=== PATIENT | male | born 1980 | race Caucasian/White ===

== ENCOUNTER 2019-10-19 10:29 | Inpatient (IN) | payer MEDICARE, MEDICAID ==
[~2019-10-19] VITALS: Ht 172.7 cm; Wt 71.4 kg
[~2019-10-19 10:29] MED LIST: CINA90TA MT; FERR210T MT; HYDR200T35 MT; HYDR200T35 PO; LORA2TAB95 PO; MULT-1146 PO; POTA-79 MT; PRED10TA MT; THIA100T13 PO
[2019-10-19] MEDS ORDERED: ONDANSETRON 4MG ODT PO STA (13:46)
[2019-10-19 14:43] LABS: BASOPHILS % 0.7 % (0.0-2.0); HEMATOCRIT. 42.4 % (42.0-52.0); HEMOGLOBIN. 14.8 g/dL (14.0-18.0); LYMPHOCYTES % 9.6 % (20.0-50.0); MEAN CORPUSCULAR HEMOGLOBIN 30.9 pg (28.0-32.0); MEAN CORPUSCULAR VOLUME 88.5 fL (80.0-94.0); MEAN PLATELET VOLUME 7.7 fl (7.4-10.4); MONOCYTES % 8.3 % (2.0-8.0); NEUTROPHILS % 81.4 % (40.0-76.0); PLATELET 439 x1000/uL (130-400); RED BLOOD CELL COUNT 4.79 mill/uL (4.7-6.1); RED CELL DISTRIBUTION WIDTH 15.2 % (11.6-14.6)
[2019-10-19 14:46] LABS: CHLORIDE 87 mEq/L (98-107); INR 1.2
[2019-10-19] MEDS ORDERED: SODIUM CHLORIDE 0.9% 1,000 ML IV ONE (16:31)
[2019-10-19 19:00] LABS: HEPATITIS B SURFACE ANTIGEN NEGATIVE
[2019-10-19 19:30] LABS: HEPATITIS A AB IGM NEGATIVE (NEGATIVE)
[2019-10-19] MEDS ORDERED: SODIUM CHLORIDE 0.9% 500ML IV NR (22:15)
[2019-10-20] VITALS: BP 144/90
[2019-10-20] MEDS ORDERED: CLONIDINE 0.1MG TABLET PO PRN (00:30)
[2019-10-20] MEDS ORDERED: ONDANSETRON HCL 4MG/2ML INJ IV PRN (00:30)
[2019-10-20] MEDS ORDERED: FOLIC ACID 1 MG, THIAMINE HCL 100 MG, MVI, ADULT NO.1 10 ML in DEXTROSE 5% WATER 1,000 ML IV NR ×4 (02:00)
[2019-10-20 08:00] VITALS: BP 130/84
[2019-10-20] MEDS ORDERED: LORAZEPAM 2MG/ML CPJ IV PRN (08:15)
[2019-10-20] MEDS: FAMOTIDINE 20MG/2ML VIAL IV SCH (09:27)
[2019-10-20] MEDS: DIPHENHYDRAMINE 50MG/ML VIAL IV PRN ×2 (10:25→18:13)
[2019-10-20 12:00] VITALS: BP 147/91
[2019-10-20 16:00] VITALS: BP 144/94
[2019-10-20 18:00] VITALS: BP 143/87
[2019-10-20] MEDS ORDERED: TEMAZEPAM 15MG CAPSULE PO PRN (21:00)
[2019-10-21] VITALS (7 sets, daily range): BP systolic 122–137; BP diastolic 83–91
[2019-10-21 07:24] LABS: CHLORIDE 90 mEq/L (98-107)
[2019-10-21 07:26] LABS: BASOPHILS % 0.9 % (0.0-2.0); EOSINOPHILS % 1.9 % (0.0-5.0); HEMATOCRIT. 32.1 % (42.0-52.0); HEMOGLOBIN. 11.2 g/dL (14.0-18.0); LYMPHOCYTES % 21.9 % (20.0-50.0); MEAN CORPUSCULAR HEMOGLOBIN 30.7 pg (28.0-32.0); MONOCYTES % 8.2 % (2.0-8.0); NEUTROPHILS % 67.1 % (40.0-76.0); PLATELET 255 x1000/uL (130-400); RED BLOOD CELL COUNT 3.65 mill/uL (4.7-6.1); RED CELL DISTRIBUTION WIDTH 15.1 % (11.6-14.6)
[2019-10-21 07:45] LABS: PHOSPHORUS 8.4 mg/dL (2.5-4.9)
[2019-10-21] MEDS ORDERED: POTASSIUM CHLORIDE 20MEQ TABLET SR PO SCH ×4 (09:00→11:00)
[2019-10-21] MEDS: FAMOTIDINE 20MG/2ML VIAL IV SCH (09:15)
[2019-10-21] MEDS: DIPHENHYDRAMINE 50MG/ML VIAL IV PRN (11:24)
== END 2019-10-21 20:15 | disposition home or self-care (01) | DRG 432 ==
LOC: ER 10:44 → 7WST 17:45 → ENRESERV 23:13
PROVIDERS: ADMIT Internal Medicine; ATTEND Internal Medicine
PROC: 3E1M39Z Irrigation of Peritoneal Cavity using Dialysate, Percutaneous Approach (ICD-10-PCS; principal; 2019-10-19)
DX: K70.10 Alcoholic hepatitis without ascites (principal); N18.6 End stage renal disease; E87.2 Acidosis; D72.829 Elevated white blood cell count, unspecified; E87.6 Hypokalemia; F10.20 Alcohol dependence, uncomplicated; I10 Essential (primary) hypertension; K80.20 Calculus of gallbladder without cholecystitis without obstruction; N27.0 Small kidney, unilateral; Z99.2 Dependence on renal dialysis; Z79.899 Other long term (current) drug therapy
CPT/HCPCS: 36415; 76705; 80048; 80053; 80307; 83605; 83735; 84100; 85025; 86705; 86709; 86803; 87340; 93005; 96365; 99285; J1200; J3411; J3490; J7030; J7040; J7070; Q0162